=== PATIENT | male | born 1975 | race Caucasian/White ===

== ENCOUNTER 2016-10-08 09:42 | Outpatient (CLI) | payer OTHER ==
[~2016-10-08] VITALS: Ht 183.2 cm; Wt 101.8 kg
[2016-10-08] VITALS (13 sets, daily range): BP systolic 94–124; BP diastolic 56–100; PULSE 55–86; TEMP 97.6–98.1
[~2016-10-08 09:42] MED LIST: ASPIRIN 81M81 MG/TA2 PO; DOXYCYCLINE 50M50 MG PO; NEXIUM 20MG20 MG PO; ZANTAC 150MG T150 MG PO
[2016-10-08] MEDS ORDERED: PAIN MED PO (10:25)
[2016-10-08] MEDS ORDERED: ULTRAM 50MG TAB50 MG PO (10:35)
[2016-10-08] MEDS ORDERED: NAPROSYN500 MG PO (10:36)
[2016-10-08] MEDS ORDERED: CELEBREX 1100 MG/CAP PO (10:36)
[2016-10-08] MEDS ORDERED: DOXYCYCLINE 10100 MG PO (16:51)
== END 2016-10-08 17:19 | disposition home or self-care (01) ==
LOC: COL.VAS 09:42
DX: I87.2 Venous insufficiency (chronic) (peripheral) (principal)
CPT/HCPCS: C1769; C1887; C1894; J2250; J3010; J3370; J7050; J7120

== ENCOUNTER → 2016-10-15 | Outpatient (CLI) | payer OTHER ==
[~2016-10-15] MED LIST changes: +CELEBREX 1100 MG/CAP PO; +DOXYCYCLINE 10100 MG PO; +NAPROSYN500 MG PO; +PAIN MED PO; +ULTRAM 50MG TAB50 MG PO
== END ==
LOC: COL.VAS 07:36
DX: Z09 Encounter for follow-up examination after completed treatment for conditions other than malignant neoplasm (principal); I82.592 Chronic embolism and thrombosis of other specified deep vein of left lower extremity

== ENCOUNTER → 2018-03-24 | Outpatient (CLI) | payer OTHER | LOC: COL.RAD 10:30 | DX: M99.71 Connective tissue and disc stenosis of intervertebral foramina of cervical region (principal); G96.8 Other specified disorders of central nervous system ==

== ENCOUNTER → 2021-05-14 | Outpatient (CLI) | payer OTHER | LOC: COL.RAD 06:54 | DX: K80.20 Calculus of gallbladder without cholecystitis without obstruction (principal) | CPT/HCPCS: A9537 ==